=== PATIENT | female | born 1945 | race African-American/Black ===

== ENCOUNTER 2022-06-14 15:46 | Inpatient (IN) ==
[2022-06-14 17:14] LABS: Basophils % 0.2 % (0.0-0.8); Eosinophils # 0.1 10*3/uL (0.0-0.87); Eosinophils % 0.5 % (0.00-10.9); Hematocrit 23.7 VOL% (35.7-47.0); Hemoglobin 7.3 GM/DL (12.0-16.0); Immature Granulocytes % 0.8 %; Lymphocytes # 1.2 10*3/uL (1.4-4.0); Lymphocytes % 9.8 % (21.3-54.2); Mean Corpuscular HGB Conc 30.8 GM/DL (32-36); Mean Corpuscular Volume 95.6 FL (87-102); Monocytes # 0.8 10*3/uL (0.11-0.8); Monocytes % 6.4 % (1.7-12.7); NRBC # 0.05 10*3/uL; Neutrophils % 82.3 % (38.7-73.9); Platelet Count 51 T/CUMM (130-400); Red Blood Count 2.48 MC/CUMM (3.8-5.5); Red Cell Distribution Width 18.4 % (9.3-17.3); White Blood Count 12.4 T/CUMM (4-12)
[2022-06-14 17:54] LABS: Albumin 3.3 G/DL (3.4-5.0); Bilirubin,Total 0.4 MG/DL (0.20-1.00); Calcium 9.7 MG/DL (8.5-10.1); Osmolality,Calculated 311.6 MOS/KG (273-304); Potassium 4.4 MMOL/L (3.5-5.1); Total Protein 7.5 G/DL (6.4-8.2)
[2022-06-14] MEDS ORDERED: MORPHINE 2 MG/1 ML SYRINGE IV PRN (19:58)
[2022-06-14] MEDS ORDERED: GLUCAGON 1 MG VIAL IM PRN (19:58)
[2022-06-14] MEDS ORDERED: ONDANSETRON 4 MG/2 ML VIAL IV PRN (19:58)
[2022-06-14] MEDS ORDERED: ACETAMINOPHEN 325 MG TABLET PO PRN (19:58)
[2022-06-14] MEDS ORDERED: tiZANidine 4 MG TABLET PO PRN (20:08)
[2022-06-14 21:19] LABS: Bacteria,Urine Occasional /HPF (Few); Hyaline Casts,Urine 3 /LPF (0-3); Mucus,Urine Occasional /LPF (Occasional); RBC,Urine 4 /HPF (0-4); Squamous Epithelial Cell,Urine Few /HPF (0-10)
[2022-06-14 21:20] LABS: Bilirubin,Urine Negative (Negative); Blood, Urine Trace mg/dL (Negative); Glucose,Urine (UA) Negative (Negative); Ketones,Urine Negative (Negative); Nitrite,Urine Negative (Negative); Protein,Urine 100 mg/dL (Negative); Urine Appearance Clear (Clear); Urine Color Yellow (Yellow); Urine Specific Gravity 1.025 (1.001-1.035); Urine Urobilinogen 0.2 eU/dL (<2.0)
[2022-06-14] MEDS: SODIUM CHLORIDE 0.45% 1,000 ML IV SCH (22:40)
[2022-06-14] MEDS: POTASSIUM CHLORIDE 10 MEQ TABLET PO SCH (22:42)
[2022-06-14] MEDS: APIXABAN 5 MG TABLET PO SCH (22:42)
[2022-06-15] MEDS: BRIMONIDINE 0.15% OPH SOLN 1 DROP/DROPS BOTTLE BOTH EYES SCH ×3 (00:15→14:15)
[2022-06-15] MEDS: TRAVOPROST 0.004% OPH SOLN 2.5 ML BOTTLE BOTH EYES SCH (00:15)
[2022-06-15 06:00] LABS: Basophils % 0.2 % (0.0-0.8); Eosinophils # 0.3 10*3/uL (0.0-0.87); Eosinophils % 2.4 % (0.00-10.9); Hematocrit 20.4 VOL% (35.7-47.0); Immature Granulocytes % 0.6 %; Immature Granulocytes Absolute 0.06 #; Lymphocytes # 1.1 10*3/uL (1.4-4.0); Lymphocytes % 10.2 % (21.3-54.2); Mean Corpuscular HGB Conc 31.4 GM/DL (32-36); Mean Corpuscular Volume 94.4 FL (87-102); Monocytes # 0.9 10*3/uL (0.11-0.8); Monocytes % 8.9 % (1.7-12.7); NRBC # 0.03 10*3/uL; Neutrophils % 77.7 % (38.7-73.9); Red Blood Count 2.16 MC/CUMM (3.8-5.5); Red Cell Distribution Width 18.1 % (9.3-17.3); White Blood Count 10.3 T/CUMM (4-12)
[2022-06-15 06:03] LABS: Hemoglobin 6.4 GM/DL (12.0-16.0)
[2022-06-15 06:04] LABS: Platelet Count 34 T/CUMM (130-400)
[2022-06-15 06:19] LABS: Platelet Estimate Decreased
[2022-06-15 06:24] LABS: Calcium 9.1 MG/DL (8.5-10.1); Potassium 4.7 MMOL/L (3.5-5.1)
[2022-06-15] MEDS: SODIUM CHLORIDE 0.45% 1,000 ML IV SCH ×2 (07:08→16:40)
[2022-06-15] MEDS: BUMETANIDE 1 MG TABLET PO SCH (08:23)
[2022-06-15] MEDS: FERROUS SULFATE 325 MG TABLET PO SCH (08:24)
[2022-06-15] MEDS: CHOLECALCIFEROL 1,000 UNIT TABLET PO SCH (08:24)
[2022-06-15] MEDS: ATORVASTATIN 10 MG TABLET PO SCH (08:24)
[2022-06-15] MEDS: PARoxetine 10 MG TABLET PO SCH (08:24)
[2022-06-15] MEDS: POTASSIUM CHLORIDE 10 MEQ TABLET PO SCH (08:25)
[2022-06-15] MEDS: PANTOPRAZOLE 40 MG VIAL IV SCH (08:25)
[2022-06-15] MEDS: LINACLOTIDE 145 MCG CAPSULE PO SCH (08:25)
[2022-06-15] MEDS: ASPIRIN EC 81 MG TABLET PO SCH (08:28)
[2022-06-15] MEDS ORDERED: amLODIPine 5 MG TABLET PO SCH (09:00)
[2022-06-15] MEDS: APIXABAN 5 MG TABLET PO SCH (09:56)
[2022-06-15] MEDS ORDERED: SODIUM CHLORIDE 0.9% 1,000 ML IV PRN ×2 (17:41→21:39)
[2022-06-16] MEDS: TRAVOPROST 0.004% OPH SOLN 2.5 ML BOTTLE BOTH EYES SCH ×2 (00:07→21:07)
[2022-06-16] MEDS: BRIMONIDINE 0.15% OPH SOLN 1 DROP/DROPS BOTTLE BOTH EYES SCH ×4 (00:07→21:08)
[2022-06-16] MEDS: SODIUM CHLORIDE 0.45% 1,000 ML IV SCH ×2 (05:50→15:33)
[2022-06-16 06:14] LABS: Basophils % 0.4 % (0.0-0.8); Eosinophils # 0.7 10*3/uL (0.0-0.87); Eosinophils % 6.9 % (0.00-10.9); Hematocrit 24.4 VOL% (35.7-47.0); Hemoglobin 7.7 GM/DL (12.0-16.0); Immature Granulocytes % 0.6 %; Immature Granulocytes Absolute 0.06 #; Lymphocytes # 1.4 10*3/uL (1.4-4.0); Lymphocytes % 13.8 % (21.3-54.2); Mean Corpuscular HGB Conc 31.6 GM/DL (32-36); Mean Corpuscular Volume 94.6 FL (87-102); Mean Platelet Volume 13.6 FL (9.6-12.0); Monocytes % 10.2 % (1.7-12.7); NRBC # 0.03 10*3/uL; Neutrophils % 68.1 % (38.7-73.9); Platelet Count 61 T/CUMM (130-400); Red Blood Count 2.58 MC/CUMM (3.8-5.5); Red Cell Distribution Width 17.6 % (9.3-17.3); White Blood Count 10.2 T/CUMM (4-12)
[2022-06-16 06:28] LABS: Albumin 2.8 G/DL (3.4-5.0); Bilirubin,Total 0.5 MG/DL (0.20-1.00); Calcium 8.8 MG/DL (8.5-10.1); Osmolality,Calculated 317.3 MOS/KG (273-304); Potassium 4.6 MMOL/L (3.5-5.1); Risk Ratio 5.62; Total Protein 6.7 G/DL (6.4-8.2); VLDL Cholesterol 17.6 MG/DL
[2022-06-16 06:39] LABS: Platelet Estimate Decreased; Schistocytes Slight
[2022-06-16 07:05] LABS: Hepatitis B Core IgM Quant 0.11 Index; Hepatitis B Surface Ag Quant < 0.10 Index; Hepatitis B Surface Ag Result Non-Reactive (NonReactive); Hepatitis C Virus Ab Quant 0.15 Index; Hepatitis C Virus Ab Result Non-Reactive (NonReactive)
[2022-06-16] MEDS: DEXTROSE 10% 250 ML BAG IV PRN (07:37)
[2022-06-16] MEDS: PANTOPRAZOLE 40 MG VIAL IV SCH (09:04)
[2022-06-16] MEDS ORDERED: HEPARIN 5,000 UNIT/1 ML VIAL ONE (09:05)
[2022-06-16] MEDS ORDERED: BUPIVACAINE MPF 0.25% 10 ML VIAL ONE (09:05)
[2022-06-16] MEDS ORDERED: LIDOCAINE 1%/EPI INJ 20 ML VIAL ONE (09:05)
[2022-06-16] MEDS ORDERED: fentaNYL 100 MCG/2 ML VIAL ONE (09:26)
[2022-06-16] MEDS ORDERED: LIDOCAINE 2% 5 ML VIAL ONE (09:26)
[2022-06-16] MEDS ORDERED: propofoL 200 MG/20 ML VIAL IV ONE (09:26)
[2022-06-16] MEDS ORDERED: MIDAZOLAM 2 MG/2 ML VIAL ONE (09:26)
[2022-06-16] MEDS ORDERED: SODIUM CHLORIDE 0.9% 250 ML IV SCH (09:30)
[2022-06-16] MEDS ORDERED: ceFAZolin 1,000 MG VIAL ONE (09:42)
[2022-06-16] MEDS: BUMETANIDE 1 MG TABLET PO SCH (10:59)
[2022-06-16] MEDS: FERROUS SULFATE 325 MG TABLET PO SCH (10:59)
[2022-06-16] MEDS: CHOLECALCIFEROL 1,000 UNIT TABLET PO SCH (11:00)
[2022-06-16] MEDS: ASPIRIN EC 81 MG TABLET PO SCH (11:00)
[2022-06-16] MEDS: PARoxetine 10 MG TABLET PO SCH (11:00)
[2022-06-16] MEDS: ATORVASTATIN 10 MG TABLET PO SCH (11:00)
[2022-06-16] MEDS: LINACLOTIDE 145 MCG CAPSULE PO SCH (11:01)
[2022-06-16] MEDS ORDERED: HEPARIN 10,000 UNIT/10 ML VIAL IV PRN (12:31)
[2022-06-16] MEDS ORDERED: MORPHINE 2 MG/1 ML SYRINGE IV PRN (16:33)
[2022-06-17] MEDS: ASPIRIN EC 81 MG TABLET PO SCH (08:03)
[2022-06-17] MEDS: FERROUS SULFATE 325 MG TABLET PO SCH (08:03)
[2022-06-17] MEDS: PARoxetine 10 MG TABLET PO SCH (08:03)
[2022-06-17] MEDS: BRIMONIDINE 0.15% OPH SOLN 1 DROP/DROPS BOTTLE BOTH EYES SCH ×3 (08:03→20:25)
[2022-06-17 08:04] LABS: Basophils % 0.5 % (0.0-0.8); Eosinophils # 0.8 10*3/uL (0.0-0.87); Eosinophils % 9.3 % (0.00-10.9); Hematocrit 22.1 VOL% (35.7-47.0); Hemoglobin 7.2 GM/DL (12.0-16.0); Immature Granulocytes % 0.5 %; Immature Granulocytes Absolute 0.04 #; Lymphocytes # 1.7 10*3/uL (1.4-4.0); Lymphocytes % 19.7 % (21.3-54.2); Mean Corpuscular HGB Conc 32.6 GM/DL (32-36); Mean Corpuscular Volume 92.1 FL (87-102); Mean Platelet Volume 12.3 FL (9.6-12.0); Monocytes % 11.5 % (1.7-12.7); Neutrophils % 58.5 % (38.7-73.9); Platelet Count 66 T/CUMM (130-400); White Blood Count 8.5 T/CUMM (4-12)
[2022-06-17] MEDS: CHOLECALCIFEROL 1,000 UNIT TABLET PO SCH (08:04)
[2022-06-17] MEDS: BUMETANIDE 1 MG TABLET PO SCH (08:04)
[2022-06-17] MEDS: ATORVASTATIN 10 MG TABLET PO SCH (08:04)
[2022-06-17] MEDS: LINACLOTIDE 145 MCG CAPSULE PO SCH (08:05)
[2022-06-17] MEDS: PANTOPRAZOLE 40 MG VIAL IV SCH (08:05)
[2022-06-17 08:25] LABS: Hypochromia 2+; Polychromasia Slight; Target Cells Few
[2022-06-17 08:26] LABS: Burr Cells Few; Ovalocytes Few; Platelet Estimate Decreased; Schistocytes Slight
[2022-06-17 08:41] LABS: Albumin 2.7 G/DL (3.4-5.0); Bilirubin,Total 0.6 MG/DL (0.20-1.00); Calcium 8.7 MG/DL (8.5-10.1); Osmolality,Calculated 298.7 MOS/KG (273-304); Potassium 4.2 MMOL/L (3.5-5.1); Total Protein 6.4 G/DL (6.4-8.2)
[2022-06-17] MEDS: DEXTROSE 10% 250 ML BAG IV PRN (15:43)
[2022-06-17] MEDS ORDERED: SODIUM CHLORIDE 0.9% 250 ML IV ONE ×2 (16:18→17:30)
[2022-06-17] MEDS: TRAVOPROST 0.004% OPH SOLN 2.5 ML BOTTLE BOTH EYES SCH (20:25)
[2022-06-17] MEDS: APIXABAN 5 MG TABLET PO SCH (20:25)
[2022-06-18 05:20] LABS: Basophils % 0.4 % (0.0-0.8); Eosinophils # 0.7 10*3/uL (0.0-0.87); Eosinophils % 9.4 % (0.00-10.9); Hematocrit 21.9 VOL% (35.7-47.0); Hemoglobin 7.1 GM/DL (12.0-16.0); Immature Granulocytes % 0.4 %; Immature Granulocytes Absolute 0.03 #; Lymphocytes # 1.5 10*3/uL (1.4-4.0); Lymphocytes % 21.3 % (21.3-54.2); Mean Corpuscular HGB Conc 32.4 GM/DL (32-36); Mean Corpuscular Volume 91.3 FL (87-102); Mean Platelet Volume 12.9 FL (9.6-12.0); Monocytes % 14.9 % (1.7-12.7); Neutrophils % 53.6 % (38.7-73.9); Platelet Count 60 T/CUMM (130-400); Red Cell Distribution Width 17.7 % (9.3-17.3)
[2022-06-18 05:41] LABS: Hypochromia Slight; Platelet Estimate Decreased
[2022-06-18 05:42] LABS: Albumin 2.4 G/DL (3.4-5.0); Bilirubin,Total 0.6 MG/DL (0.20-1.00); Osmolality,Calculated 279.4 MOS/KG (273-304); Potassium 3.8 MMOL/L (3.5-5.1); Total Protein 5.9 G/DL (6.4-8.2)
[2022-06-18] MEDS: ATORVASTATIN 10 MG TABLET PO SCH (08:29)
[2022-06-18] MEDS: FERROUS SULFATE 325 MG TABLET PO SCH (08:29)
[2022-06-18] MEDS: BUMETANIDE 1 MG TABLET PO SCH (08:29)
[2022-06-18] MEDS: PARoxetine 10 MG TABLET PO SCH (08:29)
[2022-06-18] MEDS: CHOLECALCIFEROL 1,000 UNIT TABLET PO SCH (08:29)
[2022-06-18] MEDS: APIXABAN 5 MG TABLET PO SCH ×2 (08:29→21:06)
[2022-06-18] MEDS: ASPIRIN EC 81 MG TABLET PO SCH (08:29)
[2022-06-18] MEDS: LINACLOTIDE 145 MCG CAPSULE PO SCH (08:30)
[2022-06-18] MEDS: BRIMONIDINE 0.15% OPH SOLN 1 DROP/DROPS BOTTLE BOTH EYES SCH ×3 (08:30→21:06)
[2022-06-18] MEDS: PANTOPRAZOLE 40 MG VIAL IV SCH (08:37)
[2022-06-18] MEDS: DEXTROSE 10% 250 ML BAG IV PRN ×2 (13:02→23:34)
[2022-06-18] MEDS: TRAVOPROST 0.004% OPH SOLN 2.5 ML BOTTLE BOTH EYES SCH (21:07)
[2022-06-19 04:30] LABS: Basophils % 0.5 % (0.0-0.8); Eosinophils # 0.6 10*3/uL (0.0-0.87); Hematocrit 21.6 VOL% (35.7-47.0); Immature Granulocytes % 0.6 %; Immature Granulocytes Absolute 0.04 #; Lymphocytes # 1.3 10*3/uL (1.4-4.0); Lymphocytes % 19.5 % (21.3-54.2); Mean Corpuscular HGB Conc 32.4 GM/DL (32-36); Mean Corpuscular Volume 91.1 FL (87-102); Mean Platelet Volume 12.8 FL (9.6-12.0); Monocytes % 15.7 % (1.7-12.7); Neutrophils % 54.7 % (38.7-73.9); Red Blood Count 2.37 MC/CUMM (3.8-5.5); Red Cell Distribution Width 17.7 % (9.3-17.3); White Blood Count 6.6 T/CUMM (4-12)
[2022-06-19 04:33] LABS: Platelet Count 65 T/CUMM (130-400)
[2022-06-19 04:57] LABS: Albumin 2.4 G/DL (3.4-5.0); Bilirubin,Total 0.6 MG/DL (0.20-1.00); Calcium 8.2 MG/DL (8.5-10.1); Eosinophils 8 % (0-10); Lymphocytes 17 % (20-55); Nucleated Red Blood Cells 1 (0-5); Osmolality,Calculated 269.8 MOS/KG (273-304); Platelet Estimate Decreased; Potassium 3.6 MMOL/L (3.5-5.1); Total Cells Counted 100
[2022-06-19 04:58] LABS: Hypochromia Slight
[2022-06-19] MEDS: DEXTROSE 10% 250 ML BAG IV PRN (06:03)
[2022-06-19] MEDS: PANTOPRAZOLE 40 MG VIAL IV SCH (08:50)
[2022-06-19] MEDS: FERROUS SULFATE 325 MG TABLET PO SCH (08:51)
[2022-06-19] MEDS: LINACLOTIDE 145 MCG CAPSULE PO SCH (08:51)
[2022-06-19] MEDS: APIXABAN 5 MG TABLET PO SCH ×2 (08:51→20:39)
[2022-06-19] MEDS: CHOLECALCIFEROL 1,000 UNIT TABLET PO SCH (08:51)
[2022-06-19] MEDS: PARoxetine 10 MG TABLET PO SCH (08:52)
[2022-06-19] MEDS: ASPIRIN EC 81 MG TABLET PO SCH (08:52)
[2022-06-19] MEDS: BRIMONIDINE 0.15% OPH SOLN 1 DROP/DROPS BOTTLE BOTH EYES SCH ×3 (08:52→20:39)
[2022-06-19] MEDS: BUMETANIDE 1 MG TABLET PO SCH (08:52)
[2022-06-19] MEDS: ATORVASTATIN 10 MG TABLET PO SCH (08:59)
[2022-06-19] MEDS: TRAVOPROST 0.004% OPH SOLN 2.5 ML BOTTLE BOTH EYES SCH (20:39)
[2022-06-20 05:14] LABS: Basophils % 0.6 % (0.0-0.8); Eosinophils # 0.7 10*3/uL (0.0-0.87); Eosinophils % 9.6 % (0.00-10.9); Hematocrit 21.7 VOL% (35.7-47.0); Immature Granulocytes % 0.6 %; Immature Granulocytes Absolute 0.04 #; Lymphocytes # 1.7 10*3/uL (1.4-4.0); Lymphocytes % 24.4 % (21.3-54.2); Mean Corpuscular HGB Conc 32.3 GM/DL (32-36); Mean Corpuscular Volume 92.3 FL (87-102); Monocytes % 14.3 % (1.7-12.7); Neutrophils % 50.5 % (38.7-73.9); Platelet Count 74 T/CUMM (130-400); Red Blood Count 2.35 MC/CUMM (3.8-5.5); Red Cell Distribution Width 17.5 % (9.3-17.3); White Blood Count 7.1 T/CUMM (4-12)
[2022-06-20 05:37] LABS: Platelet Estimate Decreased
[2022-06-20 05:47] LABS: Alanine Aminotransferase < 9 U/L (13-56); Albumin 2.5 G/DL (3.4-5.0); Alkaline Phosphatase 73 U/L (45-117); Aspartate Amino Transferase 26 U/L (0-37); Blood Urea Nitrogen 16 MG/DL (7-18); Calcium 8.6 MG/DL (8.5-10.1); Carbon Dioxide 24 MMOL/L (21-32); Chloride 103 MMOL/L (98-107); Osmolality,Calculated 270.8 MOS/KG (273-304); Potassium 3.6 MMOL/L (3.5-5.1); Sodium 137 MMOL/L (136-145); Total Protein 5.9 G/DL (6.4-8.2)
[2022-06-20 05:54] LABS: Glucose 47 MG/DL (74-106)
[2022-06-20] MEDS: DEXTROSE 10% 250 ML BAG IV PRN (06:11)
[2022-06-20] MEDS: BRIMONIDINE 0.15% OPH SOLN 1 DROP/DROPS BOTTLE BOTH EYES SCH ×3 (09:52→21:21)
[2022-06-20] MEDS: ASPIRIN EC 81 MG TABLET PO SCH (09:52)
[2022-06-20] MEDS: PANTOPRAZOLE 40 MG VIAL IV SCH (09:53)
[2022-06-20] MEDS: APIXABAN 5 MG TABLET PO SCH ×2 (09:53→21:21)
[2022-06-20] MEDS: PARoxetine 10 MG TABLET PO SCH (09:53)
[2022-06-20] MEDS: ATORVASTATIN 10 MG TABLET PO SCH (09:53)
[2022-06-20] MEDS: LINACLOTIDE 145 MCG CAPSULE PO SCH (09:53)
[2022-06-20] MEDS: BUMETANIDE 1 MG TABLET PO SCH (09:53)
[2022-06-20] MEDS: FERROUS SULFATE 325 MG TABLET PO SCH (09:53)
[2022-06-20] MEDS: CHOLECALCIFEROL 1,000 UNIT TABLET PO SCH (09:54)
[2022-06-20] MEDS ORDERED: PANTOPRAZOLE 40 MG TABLET PO SCH (10:29)
[2022-06-20] MEDS: DEXTROSE 5% LACTATED RINGERS 1,000 ML IV SCH (12:40)
[2022-06-20] MEDS: POLYETHYLENE GLYCOL POWDER 17 GM PACK PO SCH ×2 (16:18→21:21)
[2022-06-20] MEDS: PANTOPRAZOLE 40 MG TABLET PO SCH (21:20)
[2022-06-20] MEDS: ursodioL 300 MG CAPSULE PO SCH (21:20)
[2022-06-20] MEDS: TRAVOPROST 0.004% OPH SOLN 2.5 ML BOTTLE BOTH EYES SCH (21:21)
[2022-06-21 05:35] LABS: Basophils % 0.5 % (0.0-0.8); Eosinophils # 0.7 10*3/uL (0.0-0.87); Eosinophils % 8.9 % (0.00-10.9); Hematocrit 24.3 VOL% (35.7-47.0); Hemoglobin 7.9 GM/DL (12.0-16.0); Immature Granulocytes % 0.4 %; Immature Granulocytes Absolute 0.03 #; Lymphocytes # 1.4 10*3/uL (1.4-4.0); Lymphocytes % 19.2 % (21.3-54.2); Mean Corpuscular HGB Conc 32.5 GM/DL (32-36); Mean Corpuscular Volume 92.4 FL (87-102); Mean Platelet Volume 11.8 FL (9.6-12.0); Monocytes # 1.1 10*3/uL (0.11-0.8); Monocytes % 14.2 % (1.7-12.7); Neutrophils % 56.8 % (38.7-73.9); Platelet Count 89 T/CUMM (130-400); Red Blood Count 2.63 MC/CUMM (3.8-5.5); Red Cell Distribution Width 17.2 % (9.3-17.3); White Blood Count 7.4 T/CUMM (4-12)
[2022-06-21 05:53] LABS: Platelet Estimate Decreased
[2022-06-21 06:01] LABS: Alanine Aminotransferase < 9 U/L (13-56); Albumin 2.7 G/DL (3.4-5.0); Alkaline Phosphatase 80 U/L (45-117); Aspartate Amino Transferase 27 U/L (0-37); Blood Urea Nitrogen 19 MG/DL (7-18); Calcium 8.8 MG/DL (8.5-10.1); Carbon Dioxide 28 MMOL/L (21-32); Chloride 103 MMOL/L (98-107); Glucose 80 MG/DL (74-106); Potassium 3.6 MMOL/L (3.5-5.1); Sodium 136 MMOL/L (136-145); Total Protein 6.4 G/DL (6.4-8.2)
[2022-06-21] MEDS: ursodioL 300 MG CAPSULE PO SCH ×2 (13:32→20:50)
[2022-06-21] MEDS: BRIMONIDINE 0.15% OPH SOLN 1 DROP/DROPS BOTTLE BOTH EYES SCH ×3 (13:32→20:53)
[2022-06-21] MEDS: DEXTROSE 5% LACTATED RINGERS 1,000 ML IV SCH ×2 (13:32→20:54)
[2022-06-21] MEDS: BUMETANIDE 1 MG TABLET PO SCH (13:32)
[2022-06-21] MEDS: ASPIRIN EC 81 MG TABLET PO SCH (13:32)
[2022-06-21] MEDS: APIXABAN 5 MG TABLET PO SCH (13:33)
[2022-06-21] MEDS: POLYETHYLENE GLYCOL POWDER 17 GM PACK PO SCH ×2 (13:33→20:53)
[2022-06-21] MEDS: PANTOPRAZOLE 40 MG TABLET PO SCH ×2 (13:33→20:50)
[2022-06-21] MEDS: PARoxetine 10 MG TABLET PO SCH (13:33)
[2022-06-21] MEDS: FERROUS SULFATE 325 MG TABLET PO SCH (13:33)
[2022-06-21] MEDS: ATORVASTATIN 10 MG TABLET PO SCH (13:33)
[2022-06-21] MEDS: CHOLECALCIFEROL 1,000 UNIT TABLET PO SCH (13:33)
[2022-06-21] MEDS: LINACLOTIDE 145 MCG CAPSULE PO SCH (13:33)
[2022-06-21] MEDS: TRAVOPROST 0.004% OPH SOLN 2.5 ML BOTTLE BOTH EYES SCH (20:53)
[2022-06-22 04:11] LABS: Basophils # 0.1 10*3/uL (0.0-0.2); Basophils % 0.7 % (0.0-0.8); Eosinophils # 0.5 10*3/uL (0.0-0.87); Eosinophils % 6.6 % (0.00-10.9); Hematocrit 23.4 VOL% (35.7-47.0); Hemoglobin 7.5 GM/DL (12.0-16.0); Immature Granulocytes % 0.4 %; Immature Granulocytes Absolute 0.03 #; Lymphocytes # 1.4 10*3/uL (1.4-4.0); Lymphocytes % 20.4 % (21.3-54.2); Mean Corpuscular HGB Conc 32.1 GM/DL (32-36); Mean Corpuscular Volume 92.5 FL (87-102); Mean Platelet Volume 12.3 FL (9.6-12.0); Monocytes # 1.1 10*3/uL (0.11-0.8); Monocytes % 15.1 % (1.7-12.7); Neutrophils % 56.8 % (38.7-73.9); Platelet Count 90 T/CUMM (130-400); Red Blood Count 2.53 MC/CUMM (3.8-5.5); Red Cell Distribution Width 17.4 % (9.3-17.3); White Blood Count 7.1 T/CUMM (4-12)
[2022-06-22 04:32] LABS: Platelet Estimate Decreased
[2022-06-22 04:38] LABS: Alanine Aminotransferase < 9 U/L (13-56); Albumin 2.6 G/DL (3.4-5.0); Alkaline Phosphatase 79 U/L (45-117); Aspartate Amino Transferase 28 U/L (0-37); Blood Urea Nitrogen 9 MG/DL (7-18); Calcium 8.5 MG/DL (8.5-10.1); Carbon Dioxide 28 MMOL/L (21-32); Chloride 107 MMOL/L (98-107); Glucose 83 MG/DL (74-106); Osmolality,Calculated 272.7 MOS/KG (273-304); Potassium 3.8 MMOL/L (3.5-5.1); Sodium 138 MMOL/L (136-145); Total Protein 6.3 G/DL (6.4-8.2)
[2022-06-22] MEDS: BRIMONIDINE 0.15% OPH SOLN 1 DROP/DROPS BOTTLE BOTH EYES SCH ×3 (09:55→21:22)
[2022-06-22] MEDS: FERROUS SULFATE 325 MG TABLET PO SCH (09:57)
[2022-06-22] MEDS: ursodioL 300 MG CAPSULE PO SCH ×2 (09:57→21:22)
[2022-06-22] MEDS: ASPIRIN EC 81 MG TABLET PO SCH (09:57)
[2022-06-22] MEDS: POLYETHYLENE GLYCOL POWDER 17 GM PACK PO SCH ×2 (09:58→21:22)
[2022-06-22] MEDS: LINACLOTIDE 145 MCG CAPSULE PO SCH (09:58)
[2022-06-22] MEDS: PARoxetine 10 MG TABLET PO SCH (09:58)
[2022-06-22] MEDS: PANTOPRAZOLE 40 MG TABLET PO SCH ×2 (09:58→21:22)
[2022-06-22] MEDS: CHOLECALCIFEROL 1,000 UNIT TABLET PO SCH (09:58)
[2022-06-22] MEDS: BUMETANIDE 1 MG TABLET PO SCH (09:58)
[2022-06-22] MEDS: DEXTROSE 5% LACTATED RINGERS 1,000 ML IV SCH ×2 (10:47→17:00)
[2022-06-22] MEDS: TRAVOPROST 0.004% OPH SOLN 2.5 ML BOTTLE BOTH EYES SCH (21:22)
[2022-06-23] MEDS: BRIMONIDINE 0.15% OPH SOLN 1 DROP/DROPS BOTTLE BOTH EYES SCH ×3 (08:13→21:27)
[2022-06-23] MEDS: POLYETHYLENE GLYCOL POWDER 17 GM PACK PO SCH ×2 (08:15→22:15)
[2022-06-23] MEDS: LINACLOTIDE 145 MCG CAPSULE PO SCH (08:16)
[2022-06-23] MEDS: BUMETANIDE 1 MG TABLET PO SCH (08:17)
[2022-06-23] MEDS: ASPIRIN EC 81 MG TABLET PO SCH (08:18)
[2022-06-23] MEDS: CHOLECALCIFEROL 1,000 UNIT TABLET PO SCH (08:18)
[2022-06-23] MEDS: ursodioL 300 MG CAPSULE PO SCH ×2 (08:19→21:26)
[2022-06-23] MEDS: PARoxetine 10 MG TABLET PO SCH (08:19)
[2022-06-23] MEDS: FERROUS SULFATE 325 MG TABLET PO SCH (08:19)
[2022-06-23] MEDS: PANTOPRAZOLE 40 MG TABLET PO SCH ×2 (08:20→21:26)
[2022-06-23] MEDS: DEXTROSE 5% LACTATED RINGERS 1,000 ML IV SCH (08:20)
[2022-06-23] MEDS: TRAVOPROST 0.004% OPH SOLN 2.5 ML BOTTLE BOTH EYES SCH (21:27)
[2022-06-24] MEDS: POLYETHYLENE GLYCOL POWDER 17 GM PACK PO SCH ×2 (09:59→21:13)
[2022-06-24] MEDS: PARoxetine 10 MG TABLET PO SCH (10:00)
[2022-06-24] MEDS: CHOLECALCIFEROL 1,000 UNIT TABLET PO SCH (10:00)
[2022-06-24] MEDS: BUMETANIDE 1 MG TABLET PO SCH (10:00)
[2022-06-24] MEDS: ursodioL 300 MG CAPSULE PO SCH ×2 (10:00→21:13)
[2022-06-24] MEDS: ASPIRIN EC 81 MG TABLET PO SCH (10:00)
[2022-06-24] MEDS: FERROUS SULFATE 325 MG TABLET PO SCH (10:00)
[2022-06-24] MEDS: DEXTROSE 5% LACTATED RINGERS 1,000 ML IV SCH ×3 (10:01→15:37)
[2022-06-24] MEDS: BRIMONIDINE 0.15% OPH SOLN 1 DROP/DROPS BOTTLE BOTH EYES SCH ×3 (10:01→21:13)
[2022-06-24] MEDS: PANTOPRAZOLE 40 MG TABLET PO SCH ×2 (10:02→21:13)
[2022-06-24] MEDS: LINACLOTIDE 145 MCG CAPSULE PO SCH (11:59)
[2022-06-24] MEDS: TRAVOPROST 0.004% OPH SOLN 2.5 ML BOTTLE BOTH EYES SCH (21:14)
[2022-06-25 06:20] LABS: Calcium 8.3 MG/DL (8.5-10.1); Osmolality,Calculated 281.1 MOS/KG (273-304); Potassium 3.8 MMOL/L (3.5-5.1)
[2022-06-25] MEDS: ursodioL 300 MG CAPSULE PO SCH ×2 (13:48→21:03)
[2022-06-25] MEDS: POLYETHYLENE GLYCOL POWDER 17 GM PACK PO SCH ×2 (13:49→21:03)
[2022-06-25] MEDS: BUMETANIDE 1 MG TABLET PO SCH (13:49)
[2022-06-25] MEDS: BRIMONIDINE 0.15% OPH SOLN 1 DROP/DROPS BOTTLE BOTH EYES SCH ×3 (13:49→21:03)
[2022-06-25] MEDS: LINACLOTIDE 145 MCG CAPSULE PO SCH (13:49)
[2022-06-25] MEDS: CHOLECALCIFEROL 1,000 UNIT TABLET PO SCH (13:49)
[2022-06-25] MEDS: DEXTROSE 5% LACTATED RINGERS 1,000 ML IV SCH (13:49)
[2022-06-25] MEDS: PANTOPRAZOLE 40 MG TABLET PO SCH ×2 (13:49→21:03)
[2022-06-25] MEDS: ASPIRIN EC 81 MG TABLET PO SCH (13:49)
[2022-06-25] MEDS: FERROUS SULFATE 325 MG TABLET PO SCH (13:49)
[2022-06-25] MEDS: PARoxetine 10 MG TABLET PO SCH (13:50)
[2022-06-25] MEDS: TRAVOPROST 0.004% OPH SOLN 2.5 ML BOTTLE BOTH EYES SCH (21:03)
[2022-06-26 06:39] LABS: Basophils % 0.6 % (0.0-0.8); Eosinophils # 0.5 10*3/uL (0.0-0.87); Eosinophils % 6.3 % (0.00-10.9); Hematocrit 23.3 VOL% (35.7-47.0); Hemoglobin 7.2 GM/DL (12.0-16.0); Immature Granulocytes % 0.3 %; Immature Granulocytes Absolute 0.02 #; Lymphocytes # 1.7 10*3/uL (1.4-4.0); Lymphocytes % 23.1 % (21.3-54.2); Mean Corpuscular HGB Conc 30.9 GM/DL (32-36); Mean Corpuscular Volume 95.1 FL (87-102); Mean Platelet Volume 12.3 FL (9.6-12.0); Monocytes # 0.8 10*3/uL (0.11-0.8); Monocytes % 10.7 % (1.7-12.7); Platelet Count 94 T/CUMM (130-400); Red Blood Count 2.45 MC/CUMM (3.8-5.5); Red Cell Distribution Width 16.8 % (9.3-17.3); White Blood Count 7.1 T/CUMM (4-12)
[2022-06-26 06:51] LABS: Calcium 8.7 MG/DL (8.5-10.1); Osmolality,Calculated 275.4 MOS/KG (273-304); Potassium 3.9 MMOL/L (3.5-5.1)
[2022-06-26 07:15] LABS: Hypochromia 1+; Platelet Estimate Decreased
[2022-06-26 07:16] LABS: Anisocytosis 2+; Macrocytosis 1+
[2022-06-26] MEDS: LINACLOTIDE 145 MCG CAPSULE PO SCH (08:17)
[2022-06-26] MEDS: ursodioL 300 MG CAPSULE PO SCH ×2 (08:18→20:48)
[2022-06-26] MEDS: BUMETANIDE 1 MG TABLET PO SCH (08:18)
[2022-06-26] MEDS: ASPIRIN EC 81 MG TABLET PO SCH (08:18)
[2022-06-26] MEDS: CHOLECALCIFEROL 1,000 UNIT TABLET PO SCH (08:18)
[2022-06-26] MEDS: PANTOPRAZOLE 40 MG TABLET PO SCH ×2 (08:19→20:48)
[2022-06-26] MEDS: FERROUS SULFATE 325 MG TABLET PO SCH (08:19)
[2022-06-26] MEDS: POLYETHYLENE GLYCOL POWDER 17 GM PACK PO SCH ×2 (08:20→20:48)
[2022-06-26] MEDS: PARoxetine 10 MG TABLET PO SCH (08:20)
[2022-06-26] MEDS: BRIMONIDINE 0.15% OPH SOLN 1 DROP/DROPS BOTTLE BOTH EYES SCH ×3 (08:21→20:48)
[2022-06-26] MEDS: DEXTROSE 5% LACTATED RINGERS 1,000 ML IV SCH (08:23)
[2022-06-26] MEDS: TRAVOPROST 0.004% OPH SOLN 2.5 ML BOTTLE BOTH EYES SCH (20:49)
[2022-06-27 05:49] LABS: Calcium 8.7 MG/DL (8.5-10.1); Osmolality,Calculated 282.1 MOS/KG (273-304); Potassium 3.8 MMOL/L (3.5-5.1)
[2022-06-27] MEDS: DEXTROSE 5% LACTATED RINGERS 1,000 ML IV SCH (06:37)
[2022-06-27] MEDS: ASPIRIN EC 81 MG TABLET PO SCH (14:10)
[2022-06-27] MEDS: ursodioL 300 MG CAPSULE PO SCH ×2 (14:10→22:37)
[2022-06-27] MEDS: PANTOPRAZOLE 40 MG TABLET PO SCH ×2 (14:11→22:35)
[2022-06-27] MEDS: BRIMONIDINE 0.15% OPH SOLN 1 DROP/DROPS BOTTLE BOTH EYES SCH ×3 (14:11→22:35)
[2022-06-27] MEDS: FERROUS SULFATE 325 MG TABLET PO SCH (14:11)
[2022-06-27] MEDS: POLYETHYLENE GLYCOL POWDER 17 GM PACK PO SCH ×2 (14:11→22:35)
[2022-06-27] MEDS: LINACLOTIDE 145 MCG CAPSULE PO SCH (14:11)
[2022-06-27] MEDS: BUMETANIDE 1 MG TABLET PO SCH (14:11)
[2022-06-27] MEDS: PARoxetine 10 MG TABLET PO SCH (14:11)
[2022-06-27] MEDS: CHOLECALCIFEROL 1,000 UNIT TABLET PO SCH (14:12)
[2022-06-27] MEDS: TRAVOPROST 0.004% OPH SOLN 2.5 ML BOTTLE BOTH EYES SCH (22:35)
[2022-06-28 06:34] LABS: Basophils % 0.4 % (0.0-0.8); Eosinophils # 0.7 10*3/uL (0.0-0.87); Eosinophils % 10.4 % (0.00-10.9); Immature Granulocytes % 0.3 %; Immature Granulocytes Absolute 0.02 #; Lymphocytes # 1.5 10*3/uL (1.4-4.0); Lymphocytes % 22.4 % (21.3-54.2); Mean Corpuscular HGB Conc 31.8 GM/DL (32-36); Mean Corpuscular Volume 93.6 FL (87-102); Mean Platelet Volume 11.9 FL (9.6-12.0); Monocytes # 0.6 10*3/uL (0.11-0.8); Monocytes % 8.7 % (1.7-12.7); Neutrophils % 57.8 % (38.7-73.9); Platelet Count 99 T/CUMM (130-400); Red Blood Count 2.35 MC/CUMM (3.8-5.5); Red Cell Distribution Width 16.7 % (9.3-17.3); White Blood Count 6.8 T/CUMM (4-12)
[2022-06-28 06:45] LABS: Calcium 9.3 MG/DL (8.5-10.1); Osmolality,Calculated 282.1 MOS/KG (273-304)
[2022-06-28] MEDS: ursodioL 300 MG CAPSULE PO SCH ×3 (06:45→21:30)
[2022-06-28] MEDS: BRIMONIDINE 0.15% OPH SOLN 1 DROP/DROPS BOTTLE BOTH EYES SCH ×3 (09:23→21:31)
[2022-06-28] MEDS: BUMETANIDE 1 MG TABLET PO SCH (12:18)
[2022-06-28] MEDS: CHOLECALCIFEROL 1,000 UNIT TABLET PO SCH (12:19)
[2022-06-28] MEDS: FERROUS SULFATE 325 MG TABLET PO SCH (12:19)
[2022-06-28] MEDS: PANTOPRAZOLE 40 MG TABLET PO SCH ×2 (12:19→21:30)
[2022-06-28] MEDS: ASPIRIN EC 81 MG TABLET PO SCH (12:19)
[2022-06-28] MEDS: LINACLOTIDE 145 MCG CAPSULE PO SCH (12:20)
[2022-06-28] MEDS: PARoxetine 10 MG TABLET PO SCH (17:26)
[2022-06-28] MEDS: POLYETHYLENE GLYCOL POWDER 17 GM PACK PO SCH ×2 (17:26→21:30)
[2022-06-28] MEDS: TRAVOPROST 0.004% OPH SOLN 2.5 ML BOTTLE BOTH EYES SCH (21:31)
[2022-06-29 06:18] LABS: Calcium 8.6 MG/DL (8.5-10.1); Osmolality,Calculated 280.1 MOS/KG (273-304); Potassium 4.3 MMOL/L (3.5-5.1)
[2022-06-29 07:48] VITALS: BP 119/72
[2022-06-29] MEDS: DEXTROSE 5% LACTATED RINGERS 1,000 ML IV SCH ×2 (09:31→09:32)
[2022-06-29] MEDS: BRIMONIDINE 0.15% OPH SOLN 1 DROP/DROPS BOTTLE BOTH EYES SCH (09:32)
[2022-06-29] MEDS: BUMETANIDE 1 MG TABLET PO SCH (09:32)
[2022-06-29] MEDS: LINACLOTIDE 145 MCG CAPSULE PO SCH (09:32)
[2022-06-29] MEDS: ASPIRIN EC 81 MG TABLET PO SCH (09:32)
[2022-06-29] MEDS: POLYETHYLENE GLYCOL POWDER 17 GM PACK PO SCH (09:32)
[2022-06-29] MEDS: ursodioL 300 MG CAPSULE PO SCH (09:32)
[2022-06-29] MEDS: FERROUS SULFATE 325 MG TABLET PO SCH (09:32)
[2022-06-29] MEDS: PARoxetine 10 MG TABLET PO SCH (09:33)
[2022-06-29] MEDS: CHOLECALCIFEROL 1,000 UNIT TABLET PO SCH (09:33)
[2022-06-29] MEDS: PANTOPRAZOLE 40 MG TABLET PO SCH (09:33)
== END 2022-06-29 11:06 | disposition home health service (06) | DRG 673 ==
LOC: EDUNIT# → EDBD → N.ED 15:46 → SUATTDRO 19:59 → N.EDINP 19:59 → N.3E 22:27
PROVIDERS: ADMIT Internal Medicine; ATTEND Internal Medicine

== ENCOUNTER 2022-06-29 16:45 | Inpatient (IN) ==
[2022-06-29 19:21] LABS: Basophils # 0.1 10*3/uL (0.0-0.2); Basophils % 0.7 % (0.0-0.8); Eosinophils % 0.6 % (0.00-10.9); Hematocrit 24.5 VOL% (35.7-47.0); Hemoglobin 7.7 GM/DL (12.0-16.0); Immature Granulocytes % 0.8 %; Immature Granulocytes Absolute 0.06 #; Lymphocytes # 1.1 10*3/uL (1.4-4.0); Lymphocytes % 15.4 % (21.3-54.2); Mean Corpuscular HGB Conc 31.4 GM/DL (32-36); Mean Corpuscular Volume 93.5 FL (87-102); Monocytes # 0.5 10*3/uL (0.11-0.8); Monocytes % 6.9 % (1.7-12.7); Neutrophils % 75.6 % (38.7-73.9); Platelet Count 95 T/CUMM (130-400); Red Blood Count 2.62 MC/CUMM (3.8-5.5); Red Cell Distribution Width 16.1 % (9.3-17.3); White Blood Count 7.1 T/CUMM (4-12)
[2022-06-29 19:28] LABS: Calcium 9.3 MG/DL (8.5-10.1); Osmolality,Calculated 282.3 MOS/KG (273-304)
[2022-06-29] MEDS ORDERED: GLUCAGON 1 MG VIAL IM PRN (20:11)
[2022-06-29] MEDS ORDERED: ONDANSETRON 4 MG/2 ML VIAL IV PRN (20:11)
[2022-06-29] MEDS ORDERED: ACETAMINOPHEN 325 MG TABLET PO PRN (20:11)
[2022-06-29] MEDS ORDERED: tiZANidine 4 MG TABLET PO PRN (20:12)
[2022-06-29] MEDS ORDERED: DEXTROSE 10% 250 ML BAG IV PRN (20:23)
[2022-06-29] MEDS: PANTOPRAZOLE 40 MG TABLET PO SCH (21:07)
[2022-06-29] MEDS: APIXABAN 5 MG TABLET PO SCH (21:07)
[2022-06-29] MEDS: POLYETHYLENE GLYCOL POWDER 17 GM PACK PO SCH (21:07)
[2022-06-30] MEDS: ursodioL 300 MG CAPSULE PO SCH ×3 (03:55→21:15)
[2022-06-30 06:37] LABS: Basophils # 0.1 10*3/uL (0.0-0.2); Basophils % 0.6 % (0.0-0.8); Eosinophils # 0.2 10*3/uL (0.0-0.87); Eosinophils % 2.3 % (0.00-10.9); Hematocrit 22.8 VOL% (35.7-47.0); Hemoglobin 7.2 GM/DL (12.0-16.0); Immature Granulocytes % 0.8 %; Immature Granulocytes Absolute 0.06 #; Lymphocytes # 1.9 10*3/uL (1.4-4.0); Lymphocytes % 24.7 % (21.3-54.2); Mean Corpuscular HGB Conc 31.6 GM/DL (32-36); Mean Corpuscular Volume 93.4 FL (87-102); Mean Platelet Volume 12.2 FL (9.6-12.0); Monocytes # 0.8 10*3/uL (0.11-0.8); Monocytes % 10.7 % (1.7-12.7); Neutrophils % 60.9 % (38.7-73.9); Platelet Count 100 T/CUMM (130-400); Red Blood Count 2.44 MC/CUMM (3.8-5.5); Red Cell Distribution Width 16.3 % (9.3-17.3); White Blood Count 7.9 T/CUMM (4-12)
[2022-06-30 06:55] LABS: Alanine Aminotransferase < 9 U/L (13-56); Albumin 2.8 G/DL (3.4-5.0); Alkaline Phosphatase 101 U/L (45-117); Aspartate Amino Transferase 24 U/L (0-37); Blood Urea Nitrogen 24 MG/DL (7-18); Calcium 9.4 MG/DL (8.5-10.1); Carbon Dioxide 27 MMOL/L (21-32); Chloride 107 MMOL/L (98-107); Glucose 54 MG/DL (74-106); Osmolality,Calculated 280.4 MOS/KG (273-304); Potassium 3.9 MMOL/L (3.5-5.1); Sodium 140 MMOL/L (136-145); Total Protein 6.7 G/DL (6.4-8.2)
[2022-06-30] MEDS ORDERED: PANTOPRAZOLE 40 MG TABLET PO SCH (09:00)
[2022-06-30] MEDS: LINACLOTIDE 145 MCG CAPSULE PO SCH (10:53)
[2022-06-30] MEDS: BUMETANIDE 1 MG TABLET PO SCH (10:53)
[2022-06-30] MEDS: ASPIRIN EC 81 MG TABLET PO SCH (10:53)
[2022-06-30] MEDS: APIXABAN 5 MG TABLET PO SCH ×2 (10:54→21:15)
[2022-06-30] MEDS: FERROUS SULFATE 325 MG TABLET PO SCH (10:54)
[2022-06-30] MEDS: POLYETHYLENE GLYCOL POWDER 17 GM PACK PO SCH ×2 (10:55→21:15)
[2022-06-30] MEDS: ATORVASTATIN 10 MG TABLET PO SCH (10:55)
[2022-06-30] MEDS: amLODIPine 5 MG TABLET PO SCH (10:55)
[2022-06-30] MEDS: PARoxetine 10 MG TABLET PO SCH (10:56)
[2022-06-30] MEDS: PANTOPRAZOLE 40 MG TABLET PO SCH ×2 (10:56→21:15)
[2022-06-30] MEDS: CHOLECALCIFEROL 1,000 UNIT TABLET PO SCH (10:57)
[2022-06-30] MEDS: BRIMONIDINE 0.15% OPH SOLN 1 DROP/DROPS BOTTLE BOTH EYES SCH ×3 (11:08→21:15)
[2022-06-30] MEDS ORDERED: ZINC OXIDE PASTE 113 GM TUBE TOP PRN (12:02)
[2022-06-30] MEDS ORDERED: HEPARIN 10,000 UNIT/10 ML VIAL IV PRN (14:23)
[2022-06-30] MEDS: DEXTROSE 5% 1,000 ML IV SCH (18:02)
[2022-06-30] MEDS: TRAVOPROST 0.004% OPH SOLN 2.5 ML BOTTLE BOTH EYES SCH (21:15)
[2022-07-01 08:42] LABS: Basophils # 0.1 10*3/uL (0.0-0.2); Basophils % 0.9 % (0.0-0.8); Eosinophils # 0.7 10*3/uL (0.0-0.87); Eosinophils % 8.5 % (0.00-10.9); Hematocrit 20.2 VOL% (35.7-47.0); Immature Granulocytes % 0.8 %; Immature Granulocytes Absolute 0.06 #; Mean Corpuscular HGB Conc 31.7 GM/DL (32-36); Mean Corpuscular Volume 93.5 FL (87-102); Mean Platelet Volume 11.3 FL (9.6-12.0); Monocytes # 0.7 10*3/uL (0.11-0.8); Monocytes % 9.6 % (1.7-12.7); Neutrophils % 54.2 % (38.7-73.9); Platelet Count 92 T/CUMM (130-400); Red Blood Count 2.16 MC/CUMM (3.8-5.5); Red Cell Distribution Width 16.3 % (9.3-17.3); White Blood Count 7.7 T/CUMM (4-12)
[2022-07-01 08:51] LABS: Calcium 8.1 MG/DL (8.5-10.1); Osmolality,Calculated 274.5 MOS/KG (273-304); Potassium 4.1 MMOL/L (3.5-5.1)
[2022-07-01] MEDS: ursodioL 300 MG CAPSULE PO SCH ×2 (09:52→20:44)
[2022-07-01] MEDS: BRIMONIDINE 0.15% OPH SOLN 1 DROP/DROPS BOTTLE BOTH EYES SCH ×3 (09:52→20:45)
[2022-07-01] MEDS: ASPIRIN EC 81 MG TABLET PO SCH (09:52)
[2022-07-01] MEDS: LINACLOTIDE 145 MCG CAPSULE PO SCH (09:52)
[2022-07-01] MEDS: BUMETANIDE 1 MG TABLET PO SCH (09:53)
[2022-07-01] MEDS: MULTIVITAMIN (CENTRUM) TABLET PO SCH (09:53)
[2022-07-01] MEDS: APIXABAN 5 MG TABLET PO SCH (09:53)
[2022-07-01] MEDS: FERROUS SULFATE 325 MG TABLET PO SCH (09:54)
[2022-07-01] MEDS: MEGESTROL 400 MG/10 ML UDCUP PO SCH ×2 (09:54→17:38)
[2022-07-01] MEDS: POLYETHYLENE GLYCOL POWDER 17 GM PACK PO SCH ×2 (09:54→20:45)
[2022-07-01] MEDS: ATORVASTATIN 10 MG TABLET PO SCH (09:54)
[2022-07-01] MEDS: amLODIPine 5 MG TABLET PO SCH (09:55)
[2022-07-01] MEDS: PANTOPRAZOLE 40 MG TABLET PO SCH ×2 (09:55→20:45)
[2022-07-01] MEDS: PARoxetine 10 MG TABLET PO SCH (09:55)
[2022-07-01] MEDS: CHOLECALCIFEROL 1,000 UNIT TABLET PO SCH (09:56)
[2022-07-01 10:07] LABS: Hemoglobin 6.4 GM/DL (12.0-16.0)
[2022-07-01] MEDS ORDERED: SODIUM CHLORIDE 0.9% 1,000 ML IV PRN (10:17)
[2022-07-01] MEDS ORDERED: MAGNESIUM SULF RIDER 2 GM/50 ML PREMIX IV ONE (11:00)
[2022-07-01] MEDS: TRAVOPROST 0.004% OPH SOLN 2.5 ML BOTTLE BOTH EYES SCH (20:45)
[2022-07-01] MEDS: DEXTROSE 5% 1,000 ML IV SCH (22:40)
[2022-07-02 05:51] LABS: % Iron Saturation 30.6 % (18-50)
[2022-07-02 05:53] LABS: Calcium 8.5 MG/DL (8.5-10.1); Osmolality,Calculated 275.5 MOS/KG (273-304); Potassium 3.9 MMOL/L (3.5-5.1)
[2022-07-02 06:19] LABS: Basophils # 0.1 10*3/uL (0.0-0.2); Basophils % 0.9 % (0.0-0.8); Eosinophils # 0.6 10*3/uL (0.0-0.87); Eosinophils % 9.4 % (0.00-10.9); Hematocrit 25.4 VOL% (35.7-47.0); Immature Granulocytes % 0.6 %; Immature Granulocytes Absolute 0.04 #; Lymphocytes # 1.8 10*3/uL (1.4-4.0); Lymphocytes % 26.5 % (21.3-54.2); Mean Corpuscular HGB Conc 33.1 GM/DL (32-36); Mean Corpuscular Volume 90.1 FL (87-102); Mean Platelet Volume 11.2 FL (9.6-12.0); Monocytes # 0.6 10*3/uL (0.11-0.8); Monocytes % 9.2 % (1.7-12.7); Neutrophils % 53.4 % (38.7-73.9); Platelet Count 90 T/CUMM (130-400); Red Cell Distribution Width 15.7 % (9.3-17.3); White Blood Count 6.6 T/CUMM (4-12)
[2022-07-02 06:22] LABS: Hemoglobin 8.4 GM/DL (12.0-16.0); Red Blood Count 2.82 MC/CUMM (3.8-5.5)
[2022-07-02 06:48] LABS: Hypochromia 1+; Platelet Estimate Decreased
[2022-07-02] MEDS: MEGESTROL 400 MG/10 ML UDCUP PO SCH ×2 (12:00→17:52)
[2022-07-02] MEDS: LINACLOTIDE 145 MCG CAPSULE PO SCH (12:00)
[2022-07-02] MEDS: PANTOPRAZOLE 40 MG TABLET PO SCH ×3 (12:01→21:33)
[2022-07-02] MEDS: FERROUS SULFATE 325 MG TABLET PO SCH (12:01)
[2022-07-02] MEDS: ASPIRIN EC 81 MG TABLET PO SCH (12:01)
[2022-07-02] MEDS: MULTIVITAMIN (CENTRUM) TABLET PO SCH (12:01)
[2022-07-02] MEDS: CHOLECALCIFEROL 1,000 UNIT TABLET PO SCH (12:01)
[2022-07-02] MEDS: amLODIPine 5 MG TABLET PO SCH (12:01)
[2022-07-02] MEDS: BRIMONIDINE 0.15% OPH SOLN 1 DROP/DROPS BOTTLE BOTH EYES SCH ×3 (12:01→21:28)
[2022-07-02] MEDS: BUMETANIDE 1 MG TABLET PO SCH (12:01)
[2022-07-02] MEDS: ursodioL 300 MG CAPSULE PO SCH ×3 (12:01→21:33)
[2022-07-02] MEDS: ATORVASTATIN 10 MG TABLET PO SCH (12:02)
[2022-07-02] MEDS: POLYETHYLENE GLYCOL POWDER 17 GM PACK PO SCH ×3 (12:02→21:33)
[2022-07-02] MEDS: PARoxetine 10 MG TABLET PO SCH (12:02)
[2022-07-02] MEDS: DEXTROSE 5% 1,000 ML IV SCH (17:56)
[2022-07-02] MEDS: TRAVOPROST 0.004% OPH SOLN 2.5 ML BOTTLE BOTH EYES SCH (21:28)
[2022-07-03 06:49] LABS: Basophils % 0.5 % (0.0-0.8); Eosinophils # 0.7 10*3/uL (0.0-0.87); Hematocrit 25.6 VOL% (35.7-47.0); Hemoglobin 8.5 GM/DL (12.0-16.0); Immature Granulocytes % 0.3 %; Immature Granulocytes Absolute 0.02 #; Lymphocytes # 1.5 10*3/uL (1.4-4.0); Lymphocytes % 19.9 % (21.3-54.2); Mean Corpuscular HGB Conc 33.2 GM/DL (32-36); Mean Corpuscular Volume 90.5 FL (87-102); Mean Platelet Volume 11.9 FL (9.6-12.0); Monocytes # 0.7 10*3/uL (0.11-0.8); Monocytes % 9.7 % (1.7-12.7); Neutrophils % 60.6 % (38.7-73.9); Platelet Count 89 T/CUMM (130-400); Red Blood Count 2.83 MC/CUMM (3.8-5.5); Red Cell Distribution Width 15.6 % (9.3-17.3); White Blood Count 7.4 T/CUMM (4-12)
[2022-07-03 07:20] LABS: Calcium 8.2 MG/DL (8.5-10.1); Potassium 3.7 MMOL/L (3.5-5.1)
[2022-07-03 07:58] LABS: Platelet Estimate Decreased
[2022-07-03] MEDS: BRIMONIDINE 0.15% OPH SOLN 1 DROP/DROPS BOTTLE BOTH EYES SCH ×3 (10:46→20:31)
[2022-07-03] MEDS: ursodioL 300 MG CAPSULE PO SCH ×2 (10:46→22:49)
[2022-07-03] MEDS: MEGESTROL 400 MG/10 ML UDCUP PO SCH ×2 (10:46→16:32)
[2022-07-03] MEDS: LINACLOTIDE 145 MCG CAPSULE PO SCH (10:46)
[2022-07-03] MEDS: ASPIRIN EC 81 MG TABLET PO SCH (10:46)
[2022-07-03] MEDS: ATORVASTATIN 10 MG TABLET PO SCH (10:47)
[2022-07-03] MEDS: MULTIVITAMIN (CENTRUM) TABLET PO SCH (10:47)
[2022-07-03] MEDS: PANTOPRAZOLE 40 MG TABLET PO SCH ×2 (10:47→22:50)
[2022-07-03] MEDS: amLODIPine 5 MG TABLET PO SCH (10:47)
[2022-07-03] MEDS: PARoxetine 10 MG TABLET PO SCH (10:47)
[2022-07-03] MEDS: FERROUS SULFATE 325 MG TABLET PO SCH (10:47)
[2022-07-03] MEDS: POLYETHYLENE GLYCOL POWDER 17 GM PACK PO SCH ×2 (10:47→22:49)
[2022-07-03] MEDS: CHOLECALCIFEROL 1,000 UNIT TABLET PO SCH (10:48)
[2022-07-03] MEDS ORDERED: ACETAMINOPHEN 325 MG TABLET PO ONE (14:36)
[2022-07-03] MEDS ORDERED: traMADol 50 MG TABLET PO PRN (17:32)
[2022-07-03] MEDS: TRAVOPROST 0.004% OPH SOLN 2.5 ML BOTTLE BOTH EYES SCH (20:31)
[2022-07-03] MEDS: MEMANTINE 5 MG TABLET PO SCH (22:49)
[2022-07-04 06:02] LABS: Basophils % 0.4 % (0.0-0.8); Eosinophils # 0.9 10*3/uL (0.0-0.87); Eosinophils % 12.6 % (0.00-10.9); Hematocrit 27.1 VOL% (35.7-47.0); Hemoglobin 8.8 GM/DL (12.0-16.0); Immature Granulocytes % 0.5 %; Immature Granulocytes Absolute 0.04 #; Lymphocytes # 1.4 10*3/uL (1.4-4.0); Lymphocytes % 19.3 % (21.3-54.2); Mean Corpuscular HGB Conc 32.5 GM/DL (32-36); Mean Corpuscular Volume 90.9 FL (87-102); Monocytes # 0.6 10*3/uL (0.11-0.8); Monocytes % 7.7 % (1.7-12.7); Neutrophils % 59.5 % (38.7-73.9); Platelet Count 95 T/CUMM (130-400); Red Blood Count 2.98 MC/CUMM (3.8-5.5); Red Cell Distribution Width 15.3 % (9.3-17.3); White Blood Count 7.5 T/CUMM (4-12)
[2022-07-04 06:25] LABS: Calcium 8.8 MG/DL (8.5-10.1); Osmolality,Calculated 266.2 MOS/KG (273-304); Potassium 3.6 MMOL/L (3.5-5.1)
[2022-07-04 06:30] LABS: Eosinophils 8 % (0-10); Lymphocytes 14 % (20-55); Total Cells Counted 100
[2022-07-04 06:31] LABS: Platelet Estimate Decreased
[2022-07-04] MEDS: MEGESTROL 400 MG/10 ML UDCUP PO SCH ×2 (10:38→18:23)
[2022-07-04] MEDS: LINACLOTIDE 145 MCG CAPSULE PO SCH (10:38)
[2022-07-04] MEDS: ASPIRIN EC 81 MG TABLET PO SCH (10:38)
[2022-07-04] MEDS: BRIMONIDINE 0.15% OPH SOLN 1 DROP/DROPS BOTTLE BOTH EYES SCH ×3 (10:38→20:29)
[2022-07-04] MEDS: ursodioL 300 MG CAPSULE PO SCH ×2 (10:38→20:28)
[2022-07-04] MEDS: MEMANTINE 5 MG TABLET PO SCH ×2 (10:39→20:28)
[2022-07-04] MEDS: ATORVASTATIN 10 MG TABLET PO SCH (10:39)
[2022-07-04] MEDS: MULTIVITAMIN (CENTRUM) TABLET PO SCH (10:39)
[2022-07-04] MEDS: PARoxetine 10 MG TABLET PO SCH (10:39)
[2022-07-04] MEDS: FERROUS SULFATE 325 MG TABLET PO SCH (10:39)
[2022-07-04] MEDS: amLODIPine 5 MG TABLET PO SCH (10:39)
[2022-07-04] MEDS: POLYETHYLENE GLYCOL POWDER 17 GM PACK PO SCH ×2 (10:39→20:28)
[2022-07-04] MEDS: CHOLECALCIFEROL 1,000 UNIT TABLET PO SCH (10:40)
[2022-07-04] MEDS: PANTOPRAZOLE 40 MG TABLET PO SCH ×2 (10:40→20:28)
[2022-07-04] MEDS: DEXTROSE 5% 1,000 ML IV SCH ×2 (18:22→19:05)
[2022-07-04] MEDS: TRAVOPROST 0.004% OPH SOLN 2.5 ML BOTTLE BOTH EYES SCH (20:29)
[2022-07-05] MEDS: DEXTROSE 5% 1,000 ML IV SCH ×2 (02:42→18:36)
[2022-07-05 06:19] LABS: Basophils # 0.1 10*3/uL (0.0-0.2); Basophils % 0.8 % (0.0-0.8); Eosinophils # 0.6 10*3/uL (0.0-0.87); Eosinophils % 7.8 % (0.00-10.9); Hematocrit 27.8 VOL% (35.7-47.0); Hemoglobin 9.2 GM/DL (12.0-16.0); Immature Granulocytes % 0.4 %; Immature Granulocytes Absolute 0.03 #; Lymphocytes # 1.7 10*3/uL (1.4-4.0); Mean Corpuscular HGB Conc 33.1 GM/DL (32-36); Mean Corpuscular Volume 89.4 FL (87-102); Mean Platelet Volume 12.2 FL (9.6-12.0); Monocytes # 0.8 10*3/uL (0.11-0.8); Monocytes % 10.3 % (1.7-12.7); Neutrophils % 59.7 % (38.7-73.9); Platelet Count 106 T/CUMM (130-400); Red Blood Count 3.11 MC/CUMM (3.8-5.5); White Blood Count 7.9 T/CUMM (4-12)
[2022-07-05 06:36] LABS: Calcium 8.9 MG/DL (8.5-10.1); Osmolality,Calculated 258.9 MOS/KG (273-304); Potassium 3.6 MMOL/L (3.5-5.1)
[2022-07-05] MEDS: LINACLOTIDE 145 MCG CAPSULE PO SCH (07:30)
[2022-07-05] MEDS ORDERED: DEXTROSE 50% 25 GM/50 ML SYRINGE IV ONE (08:47)
[2022-07-05] MEDS ORDERED: ETOMIDATE 20 MG/10 ML VIAL IV ONE (08:52)
[2022-07-05] MEDS ORDERED: propofoL 200 MG/20 ML VIAL IV ONE (08:52)
[2022-07-05] MEDS ORDERED: LIDOCAINE 2% 5 ML VIAL ONE (08:52)
[2022-07-05] MEDS: CHOLECALCIFEROL 1,000 UNIT TABLET PO SCH (10:30)
[2022-07-05] MEDS: ASPIRIN EC 81 MG TABLET PO SCH (10:30)
[2022-07-05] MEDS: POLYETHYLENE GLYCOL POWDER 17 GM PACK PO SCH ×2 (10:30→21:45)
[2022-07-05] MEDS: FERROUS SULFATE 325 MG TABLET PO SCH (10:30)
[2022-07-05] MEDS: MEGESTROL 400 MG/10 ML UDCUP PO SCH ×2 (10:30→18:36)
[2022-07-05] MEDS: ursodioL 300 MG CAPSULE PO SCH ×2 (10:30→21:45)
[2022-07-05] MEDS: ATORVASTATIN 10 MG TABLET PO SCH (10:30)
[2022-07-05] MEDS: PANTOPRAZOLE 40 MG TABLET PO SCH ×2 (10:30→21:45)
[2022-07-05] MEDS: MEMANTINE 5 MG TABLET PO SCH ×2 (10:30→21:45)
[2022-07-05] MEDS: amLODIPine 5 MG TABLET PO SCH (10:30)
[2022-07-05] MEDS: PARoxetine 10 MG TABLET PO SCH (10:30)
[2022-07-05] MEDS: BRIMONIDINE 0.15% OPH SOLN 1 DROP/DROPS BOTTLE BOTH EYES SCH ×3 (10:30→21:45)
[2022-07-05] MEDS: MULTIVITAMIN (CENTRUM) TABLET PO SCH (10:30)
[2022-07-05] MEDS: TRAVOPROST 0.004% OPH SOLN 2.5 ML BOTTLE BOTH EYES SCH (21:46)
[2022-07-06] MEDS ORDERED: SODIUM CHLORIDE 0.9% 250 ML IV ONE ×2 (07:44→23:36)
[2022-07-06] MEDS: amLODIPine 5 MG TABLET PO SCH (08:45)
[2022-07-06] MEDS: LINACLOTIDE 145 MCG CAPSULE PO SCH (08:49)
[2022-07-06] MEDS: PARoxetine 10 MG TABLET PO SCH (08:50)
[2022-07-06] MEDS: ursodioL 300 MG CAPSULE PO SCH ×2 (08:50→21:06)
[2022-07-06] MEDS: PANTOPRAZOLE 40 MG TABLET PO SCH ×2 (08:50→21:06)
[2022-07-06] MEDS: ASPIRIN EC 81 MG TABLET PO SCH (08:50)
[2022-07-06] MEDS: FERROUS SULFATE 325 MG TABLET PO SCH (08:50)
[2022-07-06] MEDS: ATORVASTATIN 10 MG TABLET PO SCH (08:50)
[2022-07-06] MEDS: MEGESTROL 400 MG/10 ML UDCUP PO SCH ×2 (08:50→17:07)
[2022-07-06] MEDS: MULTIVITAMIN (CENTRUM) TABLET PO SCH (08:50)
[2022-07-06] MEDS: CHOLECALCIFEROL 1,000 UNIT TABLET PO SCH (08:51)
[2022-07-06] MEDS: MEMANTINE 5 MG TABLET PO SCH ×2 (08:51→21:06)
[2022-07-06 09:44] LABS: Basophils % 0.5 % (0.0-0.8); Eosinophils # 0.5 10*3/uL (0.0-0.87); Eosinophils % 6.1 % (0.00-10.9); Hematocrit 27.6 VOL% (35.7-47.0); Hemoglobin 8.9 GM/DL (12.0-16.0); Immature Granulocytes % 0.7 %; Immature Granulocytes Absolute 0.06 #; Lymphocytes # 1.7 10*3/uL (1.4-4.0); Lymphocytes % 20.9 % (21.3-54.2); Mean Corpuscular HGB Conc 32.2 GM/DL (32-36); Mean Corpuscular Volume 91.7 FL (87-102); Mean Platelet Volume 11.1 FL (9.6-12.0); Monocytes # 0.9 10*3/uL (0.11-0.8); Monocytes % 10.8 % (1.7-12.7); Platelet Count 100 T/CUMM (130-400); Red Blood Count 3.01 MC/CUMM (3.8-5.5); Red Cell Distribution Width 15.2 % (9.3-17.3); White Blood Count 8.3 T/CUMM (4-12)
[2022-07-06 09:55] LABS: Calcium 8.4 MG/DL (8.5-10.1); Osmolality,Calculated 266.4 MOS/KG (273-304); Potassium 3.6 MMOL/L (3.5-5.1)
[2022-07-06] MEDS: POLYETHYLENE GLYCOL POWDER 17 GM PACK PO SCH ×2 (11:18→21:07)
[2022-07-06] MEDS: BRIMONIDINE 0.15% OPH SOLN 1 DROP/DROPS BOTTLE BOTH EYES SCH ×3 (11:21→21:07)
[2022-07-06] MEDS: POTASSIUM PHOS/SOD PHOS POWDER 250 MG PACK PEG SCH ×3 (13:48→21:06)
[2022-07-06] MEDS ORDERED: SODIUM CHLORIDE 0.9% 500 ML IV ONE (14:00)
[2022-07-06] MEDS: DEXTROSE 5% 1,000 ML IV SCH (17:27)
[2022-07-06] MEDS: TRAVOPROST 0.004% OPH SOLN 2.5 ML BOTTLE BOTH EYES SCH (21:07)
[2022-07-07 05:17] LABS: Basophils % 0.4 % (0.0-0.8); Eosinophils # 0.6 10*3/uL (0.0-0.87); Eosinophils % 7.5 % (0.00-10.9); Hematocrit 24.4 VOL% (35.7-47.0); Immature Granulocytes % 0.7 %; Immature Granulocytes Absolute 0.05 #; Lymphocytes # 1.6 10*3/uL (1.4-4.0); Lymphocytes % 20.2 % (21.3-54.2); Mean Corpuscular HGB Conc 32.8 GM/DL (32-36); Mean Corpuscular Volume 91.7 FL (87-102); Mean Platelet Volume 11.1 FL (9.6-12.0); Monocytes # 0.8 10*3/uL (0.11-0.8); Neutrophils % 61.2 % (38.7-73.9); Platelet Count 93 T/CUMM (130-400); Red Blood Count 2.66 MC/CUMM (3.8-5.5); Red Cell Distribution Width 15.1 % (9.3-17.3); White Blood Count 7.7 T/CUMM (4-12)
[2022-07-07 05:34] LABS: Platelet Estimate Decreased
[2022-07-07 05:36] LABS: Osmolality,Calculated 267.5 MOS/KG (273-304); Potassium 4.2 MMOL/L (3.5-5.1)
[2022-07-07] MEDS: FERROUS SULFATE 325 MG TABLET PO SCH (10:08)
[2022-07-07] MEDS: MULTIVITAMIN (CENTRUM) TABLET PO SCH (10:08)
[2022-07-07] MEDS: PANTOPRAZOLE 40 MG TABLET PO SCH ×2 (10:08→21:25)
[2022-07-07] MEDS: MEGESTROL 400 MG/10 ML UDCUP PO SCH ×2 (10:09→18:06)
[2022-07-07] MEDS: ASPIRIN EC 81 MG TABLET PO SCH (10:09)
[2022-07-07] MEDS: ATORVASTATIN 10 MG TABLET PO SCH (10:09)
[2022-07-07] MEDS: POTASSIUM PHOS/SOD PHOS POWDER 250 MG PACK PEG SCH ×3 (10:09→21:25)
[2022-07-07] MEDS: MEMANTINE 5 MG TABLET PO SCH ×2 (10:09→21:25)
[2022-07-07] MEDS: POLYETHYLENE GLYCOL POWDER 17 GM PACK PO SCH ×2 (10:10→21:26)
[2022-07-07] MEDS: LINACLOTIDE 145 MCG CAPSULE PO SCH (10:13)
[2022-07-07] MEDS: ursodioL 300 MG CAPSULE PO SCH ×2 (10:14→21:25)
[2022-07-07] MEDS: amLODIPine 5 MG TABLET PO SCH (10:16)
[2022-07-07] MEDS: PARoxetine 10 MG TABLET PO SCH (10:16)
[2022-07-07] MEDS: CHOLECALCIFEROL 1,000 UNIT TABLET PO SCH (10:16)
[2022-07-07] MEDS: MIDODRINE 5 MG TABLET PO SCH ×2 (14:55→21:25)
[2022-07-07] MEDS ORDERED: TUBERCULIN SKIN TEST 0.1 ML SYRINGE INTRADERM ONE (15:00)
[2022-07-07] MEDS: BRIMONIDINE 0.15% OPH SOLN 1 DROP/DROPS BOTTLE BOTH EYES SCH ×3 (15:10→21:25)
[2022-07-07] MEDS: TRAVOPROST 0.004% OPH SOLN 2.5 ML BOTTLE BOTH EYES SCH (21:26)
[2022-07-08] MEDS: LINACLOTIDE 145 MCG CAPSULE PO SCH (09:54)
[2022-07-08] MEDS: FERROUS SULFATE 325 MG TABLET PO SCH (09:54)
[2022-07-08] MEDS: POLYETHYLENE GLYCOL POWDER 17 GM PACK PO SCH (09:54)
[2022-07-08] MEDS: MEGESTROL 400 MG/10 ML UDCUP PO SCH (09:54)
[2022-07-08] MEDS: PANTOPRAZOLE 40 MG TABLET PO SCH (09:54)
[2022-07-08] MEDS: amLODIPine 5 MG TABLET PO SCH (09:54)
[2022-07-08] MEDS: DEXTROSE 5% 1,000 ML IV SCH (09:54)
[2022-07-08] MEDS: MULTIVITAMIN (CENTRUM) TABLET PO SCH (09:54)
[2022-07-08] MEDS: BRIMONIDINE 0.15% OPH SOLN 1 DROP/DROPS BOTTLE BOTH EYES SCH ×2 (09:55→15:13)
[2022-07-08] MEDS: ASPIRIN EC 81 MG TABLET PO SCH (09:55)
[2022-07-08] MEDS: MIDODRINE 5 MG TABLET PO SCH ×2 (09:55→15:13)
[2022-07-08] MEDS: CHOLECALCIFEROL 1,000 UNIT TABLET PO SCH (09:55)
[2022-07-08] MEDS: ATORVASTATIN 10 MG TABLET PO SCH (09:55)
[2022-07-08] MEDS: ursodioL 300 MG CAPSULE PO SCH (09:55)
[2022-07-08] MEDS: MEMANTINE 5 MG TABLET PO SCH (09:55)
[2022-07-08] MEDS: PARoxetine 10 MG TABLET PO SCH (09:55)
[2022-07-08 16:33] VITALS: BP 96/50
[2022-07-08] MEDS ORDERED: APIXABAN 2.5 MG TABLET PO SCH (21:00)
== END 2022-07-08 16:38 | DRG 438 ==
LOC: N.ED 16:45 → N.EDINP 20:10 → INTOOBSV 20:10 → N.5E 21:46 → SUATTDRO 07-04 13:52
PROVIDERS: ADMIT Internal Medicine; ATTEND Internal Medicine
PROC: EGDWPEG (ICD-10-PCS; 2022-07-05 10:35)